=== PATIENT | male | born 1990 | race Caucasian/White ===

== ENCOUNTER 2017-03-30 01:09 | Emergency (ER) | payer OTHER ==
[2017-03-30 01:47] LABS: MUDS CUTOFF CONCENTRATIONS CUTOFF CONC BELOW:
[2017-03-30 01:53] LABS: CALCIUM 9.2 mg/dL (8.5-10.3); CREATININE 1.1 mg/dL (0.6-1.2)
[2017-03-30 02:03] LABS: AMPHETAMINE SCREEN,URINE NEGATIVE (NEGATIVE); BENZODIAZEPINES SCREEN, URINE NEGATIVE (NEGATIVE); COCAINE SCREEN URINE NEGATIVE (NEGATIVE); METHADONE SCREEN, URINE NEGATIVE (NEGATIVE); METHAMPHETAMINES SCREEN, URINE NEGATIVE (NEGATIVE); OPIATE SCREEN, URINE NEGATIVE (NEGATIVE); OXYCODONE SCREEN, URINE NEGATIVE (NEGATIVE); PROPOXYPHENE SCREEN, URINE NEGATIVE (NEGATIVE); TRICYCLIC ANTIDEPRESSANT,URINE NEGATIVE (NEGATIVE)
--- NOTE | 2017-03-30 02:30 | ED Physician Documentation ---
PD HPI MHE - Stated complaint Stated Complaint: SI - Chief complaint Chief Complaint: MHE - History obtained from History obtained from: Patient, Family (Spouse) - History of Present Illness Primary symptom: Suicidal ideation Timing - onset: How many months ago (1) Contributing factors: Substance abuse - ETOH Similar symptoms before: No diagnosis - Additional information Additional information: The patient is a 26-year-old active [employer] [place] male who presents with suicidal ideation. He is accompanied by his and 2 young children. He states he has been thinking about suicide for the past month, but denies any concrete plan. He is not able to identify any specific inciting event that prompted his sense of hopelessness. He admits to drinking alcohol on a daily basis. He denies the use of other drugs. He denies any history of psychiatric evaluation , treatment, or hospitalizations. He has not sought evaluation or treatment for mental health because of stigma of mental health issues being a sign of weakness. Review of Systems Constitutional: denies: Fever Nose: denies: Congestion Throat: denies: Sore throat Cardiac: denies: Chest pain / pressure Respiratory: denies: Dyspnea, Cough GI: denies: Abdominal Pain, Nausea, Vomiting : denies: Dysuria Skin: denies: Rash Musculoskeletal: denies: Back pain Neurologic: denies: Headache Psychiatric: reports: Depressed, Suicidal (Vague suicidal ideation, without concrete plan.). denies: Hallucinations, Delusions PD PAST MEDICAL HISTORY - Past Medical History Past Medical History: No Cardiovascular: Hypertension Respiratory: None Neuro: None Endocrine/Autoimmune: None GI: None : None HEENT: None Psych: None Musculoskeletal: None Derm: None - Past Surgical History Past Surgical History: Yes - Present Medications Home Medications: Ambulatory Orders Medication Instructions Recorded Confirmed No Known Home Medications [No 03/30/17 03/30/17 Known Home Medications] - Allergies Allergies/Adverse Reactions: Allergies Allergy/AdvReac Type Severity Reaction Status Date / Time MARIANA Inhibitors Allergy Dizziness Verified 03/30/17 01:19 cephalexin [From Keflex] Allergy Unknown Verified 03/30/17 01:19 - Social History Does the pt smoke?: No Smoking Status: Never smoker Does the pt drink ETOH?: Yes ETOH Use: Beer Does the pt have substance abuse?: No - Immunizations Immunizations are current?: Yes - POLST Patient has POLST: No PD ED PE NORMAL - Vitals Vital signs reviewed: Yes (Initially hypertensive.) - General General: Alert and oriented X 3, Well developed/nourished - HEENT HEENT: Atraumatic, EOMI, Moist mucous membranes, Pharynx benign - Neck Neck: Supple, no meningeal sign, No adenopathy - Cardiac Cardiac: RRR, No murmur - Respiratory Respiratory: No respiratory distress, Clear bilaterally - Abdomen Abdomen: Soft, Non tender - Back Back: No CVA TTP - Derm Derm: No rash - Extremities Extremities: Normal ROM s pain, No edema - Neuro Neuro: Alert and oriented X 3, No motor deficit, Normal speech - Psych Psych: Other (Blunted affect.) PD ED PE EXPANDED - Psych Psych: Depressed, Suicidal (Vague suicidal thoughts, without concrete plan.), Other (Blunted affect.) Results - Vitals Vitals: Vital Signs - 24 hr 03/30/17 03/30/17 01:14 06:43 Temperature 36.4 C L Heart Rate 60 85 Respiratory 18 16 Rate Blood Pressure 142/84 H 134/92 H O2 Saturation 98 99 Oxygen O2 Source Room air - Labs Labs: Laboratory Tests 03/30/17 03/30/17 01:37 01:46 Sodium 137 Potassium 4.2 Chloride 99 L Carbon Dioxide 25 Anion Gap 13.0 BUN 13 Creatinine 1.1 Estimated GFR (MDRD) 80 L Glucose 99 Calcium 9.2 Urine Opiates Screen NEGATIVE Ur Oxycodone Screen NEGATIVE Urine Methadone Screen NEGATIVE Ur Propoxyphene Screen NEGATIVE Ur Barbiturates Screen NEGATIVE Ur Tricyclics Screen NEGATIVE Ur Phencyclidine Scrn NEGATIVE Ur Amphetamine Screen NEGATIVE U Methamphetamines Scrn NEGATIVE U Benzodiazepines Scrn NEGATIVE Urine Cocaine Screen NEGATIVE U Cannabinoids Screen NEGATIVE Ethyl Alcohol 56.1 PD MEDICAL DECISION MAKING - ED course Complexity details: reviewed results, considered differential, d/w patient, d/w family ED course: Patient presents with vague suicidal ideation, without a concrete plan. He has a history of daily alcohol use. He and his agree that he should pursue mental health treatment for his chronic depression. He agrees to stay in the emergency department until medical collections specialist arrives in the daytime hours to assist with referrals for what will likely be outpatient therapy. At change of shift I discussed his care with Dr. Dee who will be assuming his care pending evaluation by the medical collections specialist. Departure - Departure Clinical Impression: Suicidal ideation Condition: Stable Instructions: ED Depression
--- NOTE | 2017-03-30 08:57 | ED Physician Documentation ---
History of Present Illness - Stated complaint Stated Complaint: SI - Chief complaint Chief Complaint: MHE PD PAST MEDICAL HISTORY - Past Medical History Past Medical History: No Cardiovascular: Hypertension Respiratory: None Neuro: None Endocrine/Autoimmune: None GI: None : None HEENT: None Psych: None Musculoskeletal: None Derm: None - Past Surgical History Past Surgical History: Yes - Present Medications Home Medications: Ambulatory Orders Medication Instructions Recorded Confirmed No Known Home Medications [No 03/30/17 03/30/17 Known Home Medications] - Allergies Allergies/Adverse Reactions: Allergies Allergy/AdvReac Type Severity Reaction Status Date / Time MARIANA Inhibitors Allergy Dizziness Verified 03/30/17 01:19 cephalexin [From Keflex] Allergy Unknown Verified 03/30/17 01:19 - Social History Does the pt smoke?: No Smoking Status: Never smoker Does the pt drink ETOH?: Yes ETOH Use: Beer Does the pt have substance abuse?: No - Immunizations Immunizations are current?: Yes - POLST Patient has POLST: No Results - Vitals Vitals: Vital Signs - 24 hr 03/30/17 03/30/17 01:14 06:43 Temperature 36.4 C L Heart Rate 60 85 Respiratory 18 16 Rate Blood Pressure 142/84 H 134/92 H O2 Saturation 98 99 Oxygen O2 Source Room air - Labs Labs: Laboratory Tests 03/30/17 03/30/17 01:37 01:46 Sodium 137 Potassium 4.2 Chloride 99 L Carbon Dioxide 25 Anion Gap 13.0 BUN 13 Creatinine 1.1 Estimated GFR (MDRD) 80 L Glucose 99 Calcium 9.2 Urine Opiates Screen NEGATIVE Ur Oxycodone Screen NEGATIVE Urine Methadone Screen NEGATIVE Ur Propoxyphene Screen NEGATIVE Ur Barbiturates Screen NEGATIVE Ur Tricyclics Screen NEGATIVE Ur Phencyclidine Scrn NEGATIVE Ur Amphetamine Screen NEGATIVE U Methamphetamines Scrn NEGATIVE U Benzodiazepines Scrn NEGATIVE Urine Cocaine Screen NEGATIVE U Cannabinoids Screen NEGATIVE Ethyl Alcohol 56.1 PD MEDICAL DECISION MAKING - ED course ED course: assumed care [address] Jaimes 26 y/o m AD [facility] to ER with suicidal ideations pt medicaly clear seen by SW this AM - she does not feel pt is a danger to himself or others at this time and may be safely dced back to the care of his [employer] SW contacting [facility] for follow up and resources etc I went and spoke with pt and he agrees he feels safe to go at this time Departure - Departure Disposition: Home, Self Care Clinical Impression: Suicidal ideation Depression Qualifiers: Depression Type: unspecified Qualified Code(s): F32.9 - Major depressive disorder, single episode, unspecified Condition: Stable Instructions: ED Depression Follow-Up: [facility] Chavez [Provider Group] Comments: Follow up at [facility] today to establish care for further counseling etc Return to the ER at any time if you feel like you might hurt yourself or others - we are always open and ready to help you
[2017-03-30 09:39] VITALS: BP 143/94
== END 2017-03-30 09:50 | disposition home or self-care (01) ==
LOC: ED 01:09
DX: F32.9 Major depressive disorder, single episode, unspecified (principal); I10 Essential (primary) hypertension
CPT/HCPCS: 36415; 80048; 80306; 80320; 99283; 99284

== ENCOUNTER 2019-07-08 08:54 | Day surgery (SDC) | payer OTHER ==
[~2019-07-08 08:54] MED LIST: LACTATED RINGERS 1,000 ML IV ONE
[2019-07-08] MEDS ORDERED: LIDOCAINE-MPF 2% 5 ML VIAL IM ONE (08:55)
[2019-07-08] MEDS ORDERED: fentaNYL 100 MCG/2 ML VIAL IVP ONE (08:55)
[2019-07-08] MEDS ORDERED: ROCURONIUM 50 MG/5 ML VIAL IVP ONE (08:55)
[2019-07-08] MEDS ORDERED: MIDAZOLAM 2 MG/2 ML VIAL IVP ONE (08:55)
[2019-07-08] MEDS ORDERED: PROPOFOL 200 MG/20 ML VIAL IVP ONE (08:55)
[2019-07-08] MEDS ORDERED: ONDANSETRON 4 MG/2 ML VIAL IVP ONE (08:55)
[2019-07-08] MEDS ORDERED: cefTRIAXone 2 GM VIAL ONE (09:03)
[2019-07-08] MEDS ORDERED: EPINEPHrine 1 MG/ML AMP ONE (09:05)
--- NOTE | 2019-07-08 09:19 | ANESTHESIA ---
Pre-Anesthesia VS, & Labs - Diagnosis right biceps tendinitis - Procedure right shoulder arthroscopy, labral repair, repair biceps tenodesis Vital Signs: Temp Pulse Resp BP Pulse Ox 36.3 C L 62 15 120/84 H 100 07/08/19 08:53 07/08/19 08:53 07/08/19 08:53 07/08/19 08:53 07/08/19 08:53 Height 5 ft 11 in Weight (kg) 81.65 kg Body Mass Index 27.9 - NPO >8 hours Home Medications and Allergies Home Medications: Ambulatory Orders Loratadine [Claritin] 10 mg PO PRN PRN 07/06/19 Propranolol [Inderal] 10 mg PO TID 07/06/19 Sertraline [Zoloft] 25 mg PO DAILY 07/06/19 Sildenafil Citrate [Viagra] 100 mg PO PRN PRN 07/06/19 Loratadine [Claritin] 10 mg PO PRN PRN 07/06/19 Propranolol [Inderal] 10 mg PO TID 07/06/19 Sertraline [Zoloft] 25 mg PO DAILY 07/06/19 Sildenafil Citrate [Viagra] 100 mg PO PRN PRN 07/06/19 Allergies/Adverse Reactions: Allergies Allergy/AdvReac Type Severity Reaction Status Date / Time cephalexin [From Keflex] Allergy Severe Unknown Verified 07/08/19 09:06 MARIANA Inhibitors Allergy Dizziness Verified 07/06/19 08:49 Anes History & Medical History - Anesthetic History Anesthesia Complications: reports: No previous complications - Medical History Cardiovascular: reports: None Pulmonary: reports: None Gastrointestinal: reports: None Urinary: reports: None Musculoskeletal: reports: Other Endocrine/Autoimmune: reports: None Blood Disorders: reports: None Skin: reports: None Smoking Status: Never smoker - Surgical History Orthopedic: Shoulder arthroplasty Exam General: Alert Dental: WNL Mouth Opening: Greater than 4 Fingerbreadths Neck Mobility: Normal Mallampati classification: II Thyromental Distance: greater than 6 cm Respiratory: Lungs clear Cardiovascular: Regular rate Plan Anesthesia Type: General, Interscalene Block Consent for Procedure(s) Verified and Reviewed: Yes Code Status: Attempt Resuscitation ASA classification: 1-Healthy patient Is this case an emergency?: No
[2019-07-08] MEDS ORDERED: BUPIVACAINE 0.25% PF 30 ML VIAL ONE (09:42)
[2019-07-08] MEDS ORDERED: EPINEPHrine 1 MG/ML AMP IR ONE (10:46)
[2019-07-08] MEDS ORDERED: BUPIVACAINE 0.25% PF 30 ML VIAL SUBQ ONE (11:30)
[2019-07-08] MEDS ORDERED: ONDANSETRON 4 MG/2 ML VIAL IVP PRN (11:35)
[2019-07-08] MEDS ORDERED: oxyCODONE 5 MG TABLET PO PRN (11:35)
--- NOTE | 2019-07-08 11:42 | OPERATIVE REPORT ---
Operative Report - Other Other Information/Narrative: Date of Surgery: 08 Jul 2019 Pre-Op Diagnosis: Right shoulder SLAP tear with prior anterior labral repair Procedure: Right shoulder arthroscopic rotator cuff debridement. Right shoulder open biceps tenodesis Postop Diagnosis: Partial-thickness rotator cuff tear. SLAP tear. Anterior labral repair intact Primary Surgeon: Saw Baig Secondary Surgeon: Kenney Kemp Complications: None EBL: 20 cc IMPLANTS: Arthrex fiber tack x1 POSTOPERATIVE PLAN: 0-2 weeks-Sling at all times. Pendulum exercises 5 times per day. 2-6 weeks-Passive and active range of motion without limitations. No active flexion at the elbow 6-12 weeks-Gradually increase strengthening focusing on rotator cuff and scapular stabilizers per protocol. 16 weeks and beyond-Introduce dynamic activities. EXAMINATION UNDER ANESTHESIA: ROM: Full Anterior load and shift: Grade 1 Posterior load and shift: Grade 1/2 Inferior sulcus: Grade 1 Examination very similar to the contralateral side ARTHROSCOPIC FINDINGS: Rotator interval: Biceps sling with with some fraying Biceps tendon & SLAP: Large SLAP tear communicating with the middle glenohumeral ligament Subscapularis: Mild fraying but structurally stable Rotator Cuff: Small partial-thickness tear of the articular side of the leading edge of the supraspinatus, this was debrided HAGL: None Labrum: Prior anterior labral repair has healed nicely and was stable to probing. There was a crack in the posterior inferior labrum but this was stable to probing. Glenoid Cartilage: Partial-thickness cartilage lesion centrally with mild fraying of the cartilage Humeral Head Cartilage: Mild fraying of the cartilage anteriorly and superiorly as it approached the rotator cuff. The majority of the humeral head cartilage was normal INDICATION FOR SURGERY: 28-year-old male who injured his right shoulder while throwing something in 2016. He underwent an anterior labral repair but continued to have pain and did not trust the shoulder. He has developed subsequent pain most consistent with a SLAP tear. He was able to do push-ups and had no pain on posterior loading. There was multidirectional instability in the bilateral shoulders on examination. He received 100% pain relief for about a month after biceps tendon sheath injection. Nonoperative managment failed to resolve symptoms. The risks, benefits, and alternatives were discussed. Risks included pain, bleeding, infection, damage to nearby structures, lack of symptom relief, implant complications, stiffness, need for further surgeries, DVT, PE, stroke, and even . He signed a written consent form. PROCEDURE IN DETAIL: The patient was met in the preoperative holding on the day of the procedure. Operative extremity was signed. Consent was verified. They desired to proceed. Regional anesthesia was obtained in the preoperative area. They were brought to the operating room and surrendered to anesthesia. Once general anesthesia was obtained they were placed in the lateral decubitus position with the operative side up. An axillary roll was placed and all bony prominences were well-padded. A surgical timeout was held to confirm the patient procedure, identity, procedure, laterality, allergies, images, and antibiotics. All were in agreement we proceeded. A standard diagnostic arthroscopy was performed utilizing posterior and anterosuperior portals. The anterosuperior portal was created under direct visualization and localized with a spinal needle. The 7 mm cannula was placed anteriorly. The findings of the diagnostic arthroscopy can be found above. A shaver was used to debride the undersurface tear of the supraspinatus and a picture was taken. I then used a straight biter to bite the biceps tendon at its insertion on the superior labrum. The small amount of fraying adjacent to the labrum was then debrided and the SLAP tear was debrided until it was stable. The biceps stump was also debrided. MINI OPEN BICEPS TENODESIS: A 5 cm incision was made near the axillary fold centered over the pectoralis major tendon. Electrocautery was used to obtain hemostasis. The fascia was opened with dissection scissors. Blunt digital dissection was used to identify the intertubercular groove just under the pectoralis major tendon. The long head of the biceps tendon was visualized within this interval. The short head of the biceps was retracted with my finger and the right angle was used to deliver the tendon of the long head of the biceps out of the wound. A boucher elevator was then used to debride all synovial tissue from the intertubercular groove. A fibertack was placed high within the groove. Both limbs of the fibertack were pulled on and it was well fixed. I then whipstitched the biceps tendon starting 2 cm proximal to the musculotendinous junction down to the musculotendinous junction and back up to the same 2 cm location with a single limb of the suture tack. The other suture was placed once through the tendon at the 2 cm location. I then cut all excess tendon off. The suture limb that was passed the single time was then pulled on and this reduced the tendon nicely into the groove. The elbow was fully straightened and there was no excess tension on the repair site. I then tied 7 reverse half hitches alternating to secure the tendon in its place. The wound was then irrigated copiously. The portal sites were then closed with 3-0 Monocryl buried. Any open incisions were closed with 2-0 Vicryl in the dermis and a running 3-0 Monocryl in the skin. Mastisol and Steri-Strips were applied. A sterile dressing and a sling was applied. A sling was placed. The patient was awakened and transferred to the recovery room.
[2019-07-08] MEDS ORDERED: HYDROmorphone 0.5 MG/0.5 ML SYRINGE ONE (12:03)
[2019-07-08 12:55] VITALS: BP 135/68
== END 2019-07-08 08:55 | disposition home or self-care (01) ==
LOC: SDS 08:54
PROVIDERS: ATTEND Orthopaedic Surgery
DX: S43.431A Superior glenoid labrum lesion of right shoulder, initial encounter (principal); S46.011A Strain of muscle(s) and tendon(s) of the rotator cuff of right shoulder, initial encounter

== ENCOUNTER 2019-11-27 20:08 | Emergency (ER) | payer OTHER ==
[2019-11-27] MEDS ORDERED: BUFFERED LIDOCAINE 10 ML SYRINGE SUBQ STA (21:11)
[2019-11-27] MEDS ORDERED: BACITRACIN ZINC OINT 1 PACKET TOP STA (21:22)
--- NOTE | 2019-11-27 21:23 | ED Physician Documentation ---
History of Present Illness - Stated complaint Stated Complaint: ARM LAC - Chief complaint Chief Complaint: Laceration - History obtained from History obtained from: Patient - History of Present Illness Timing: Today, How many hours ago (1) Pain level max: 3 Pain level now: 2 - Additonal information Additional information: L forearm laceration. 2cm. superficial. states accidentally cut himself at home with a knife. Td UTD. Pt is right handed. Nothing makes it better or worse Review of Systems Constitutional: denies: Fever GI: denies: Vomiting PD PAST MEDICAL HISTORY - Past Medical History Past Medical History: No Cardiovascular: None Respiratory: None Endocrine/Autoimmune: None GI: None : None HEENT: None Psych: Other Musculoskeletal: Other Derm: None - Past Surgical History Past Surgical History: Yes Ortho: Shoulder arthroplasty - Present Medications Home Medications: Ambulatory Orders Medication Instructions Recorded Confirmed Loratadine [Claritin] 10 mg PO PRN PRN 07/06/19 07/08/19 Propranolol [Inderal] 10 mg PO TID 07/06/19 07/06/19 Sertraline [Zoloft] 25 mg PO DAILY 07/06/19 07/08/19 Sildenafil Citrate [Viagra] 100 mg PO PRN PRN 07/06/19 07/08/19 - Allergies Allergies/Adverse Reactions: Allergies Allergy/AdvReac Type Severity Reaction Status Date / Time cephalexin [From Keflex] Allergy Severe Unknown Verified 11/27/19 20:11 MARIANA Inhibitors Allergy Dizziness Verified 11/27/19 20:11 - Social History Does the pt smoke?: No Smoking Status: Never smoker Does the pt drink ETOH?: Yes Does the pt have substance abuse?: No - Immunizations Immunizations are current?: Yes - POLST Patient has POLST: No PD ED PE NORMAL - Vitals Vital signs reviewed: Yes - General General: Alert and oriented X 3, No acute distress - HEENT HEENT: Moist mucous membranes - Neck Neck: Supple, no meningeal sign - Derm Derm: Warm and dry - Extremities Extremities: Other (Superficial 2 cm laceration to the dorsum of the left forearm. Subcutaneous. Neurovascular intact. No tendon injury. No muscle injury.) - Neuro Neuro: Alert and oriented X 3 Results - Vitals Vitals: Vital Signs - 24 hr 11/27/19 11/27/19 11/27/19 20:11 20:37 21:25 Temperature 36.5 C Heart Rate 69 67 64 Respiratory 16 18 Rate Blood Pressure 131/64 H 129/84 H 135/80 H O2 Saturation 98 100 Oxygen O2 Source Room air Procedures - Laceration (location) Left forearm Length in cm: 2 Wound type: Linear, Superficial, Into subcut fat, Clean Neurovascular status: Sensory intact, Motor intact, Vascular intact Tendon involvement: Tendon intact Anesthesia: Lidocaine 1% Wound Preparation: Irrigated copiously NS Skin layer closure: Nylon, Interrupted, Size #-0 - enter number (4) Other: Patient tolerated well, No complications, Neurovascular intact Complexity: Simple PD MEDICAL DECISION MAKING - ED course Complexity details: considered differential, d/w patient ED course: Patient with a laceration to the left forearm. Repaired with sutures. Tolerated well. No tendon injury. No muscle injury. Neurovascular intact. Warnings of infection and instructions on wound care given at bedside. Also counseled on how to minimize scarring. Patient counseled regarding signs and symptoms for which I believe and urgent re-evaluation would be necessary. Patient with good understanding of and agreement to plan and is comfortable going home at this time This document was made in part using voice recognition software. While efforts are made to proofread this document, sound alike and grammatical errors may occur. Departure - Departure Disposition: 01 Home, Self Care Clinical Impression: Laceration of forearm Qualifiers: Encounter type: initial encounter Laterality: left Qualified Code(s): S51.812A - Laceration without foreign body of left forearm, initial encounter Condition: Good Instructions: ED Laceration All Follow-Up: RINA FOX DO [Primary Care Provider] - Comments: Follow-up with your doctor in 10 to 14 days for suture removal. Return if you worsen. Return if you notice redness, swelling or drainage from the wound. Keep the wound covered for the next several days. You can apply antibiotic ointment at home as well. Discharge Date/Time: 11/27/19 21:27
[2019-11-27 21:26] VITALS: BP 135/80
== END 2019-11-27 21:27 | disposition home or self-care (01) ==
LOC: ED 20:08
DX: S51.812A Laceration without foreign body of left forearm, initial encounter (principal); W26.0XXA Contact with knife, initial encounter; Y92.009 Unspecified place in unspecified non-institutional (private) residence as the place of occurrence of the external cause
CPT/HCPCS: 12001; 99282; 99283